=== PATIENT | female | born 1995 ===

== ENCOUNTER 2021-10-23 06:26 | Emergency (ER) | payer SELFPAY ==
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
[2021-10-23 07:57] LABS: Basophils % (Auto) 0.3 % (0.0-1.8); Eosinophils # (Auto) 0.1 K/mm3 (0.0-0.4); Eosinophils % (Auto) 0.7 % (0.0-4.3); Lymphocytes # (Auto) 1.3 K/mm3 (1.2-5.4); Lymphocytes % (Auto) 18.9 % (13.4-35.0); Mean Corpuscular HGB Conc 31 % (30-34); Mean Corpuscular Volume 85 fl (79-97); Monocytes # (Auto) 0.7 K/mm3 (0.0-0.8); Monocytes % (Auto) 10.3 % (0.0-7.3); Platelet Count 295 K/mm3 (140-440); Red Blood Count 4.96 M/mm3 (3.65-5.03); Red Cell Distribution Width 17.7 % (13.2-15.2)
[2021-10-23 08:04] LABS: Hemoglobin 12.9 gm/dl (10.1-14.3)
[2021-10-23 08:21] LABS: Alanine Aminotransferase 20 units/L (7-56); Albumin 3.9 g/dL (3.9-5); Blood Urea Nitrogen 11 mg/dL (7-17); Hemolysis Index 5
[2021-10-23 08:22] LABS: BUN/Creatinine Ratio 18
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
[2021-10-24 07:26] LABS: Amphetamine Screen,Urine PRESUMPTIVE NEGATIVE; Benzodiazepines Screen,Urine PRESUMPTIVE NEGATIVE; Cannabinoid Screen,Urine PRESUMPTIVE NEGATIVE; Cocaine Screen,Urine PRESUMPTIVE NEGATIVE; Methadone Screen,Urine PRESUMPTIVE NEGATIVE; Opiate Screen,Urine PRESUMPTIVE POSITIVE
[2021-10-24 07:32] LABS: Bilirubin,Urine NEG (Negative); Blood,Urine LG (Negative); Color,Urine Yellow (Yellow); Mucus,Urine FEW /HPF; Urobilinogen,Urine < 2.0 mg/dL (<2.0)
--- NOTE | 2021-10-24 11:45 | Progress Note ---
Subjective - Reason for Consult Consult date: 10/24/21 Reason for consult: suicidal attempt - Chief Complaint Chief complaint: The patient was seen this morning, she was tearful. She continues to endorse depression and is receptive to starting medications. She denies anyc urrent suicidal/homicidal ideation and denies hallucinations. REVIEW OF SYSTEMS Constitutional: Negative for weight loss ENT: Negative for stridor Respiratory: Negative for cough or hemoptysis All other systems reviewed and are negative MENTAL STATUS EXAMINATION General Appearance and Behavior: Age appropriate, good hygiene, not wearing appropriate clothes, good eye contact, cooperative polite with questioning. Cooperation: Participating/engaged Psychomotor Behavior: Psychomotor normal Mood: Depressed Affect and affective range:congruent with stated mood Thought Process: Goal directed Thought Content: reality oriented Speech: normal tone and pace Suicidal Ideation:Denies Homicidal Ideation: Denies HI Hallucinations: Denies Delusions: None elicited Impulse Control: Limited Insight and Judgment: Limited insight and fair judgment Memory: Normal Attention: Normal Orientation: Alert, oriented, Assessment and Plan depression Treatment 1013 Restart home meds Medical: Per primary Sitter: Defer to [facility] Disposition: Recommend acute inpatient treatment. Will follow. Medications and Allergies Mental Status Exam - Vital signs Last Vital Signs Temp 99.4 F 10/23/21 20:13 Pulse 107 H 10/23/21 20:13 Resp 18 10/23/21 20:13 BP 100/58 10/23/21 20:13 Pulse Ox 99 10/23/21 20:13
--- NOTE | 2021-10-24 11:48 | Event Note ---
Date: 10/24/21 S: No events reported overnight O: Vital Signs - 8 hr 10/24/21 12:10 Temperature 99.1 F Pulse Rate 83 Respiratory 16 Rate Blood Pressure 124/76 [Right] O2 Sat by Pulse 98 Oximetry A: depression PE: 1013/awaiting inpatient psych
[2021-10-24] MEDS ORDERED: SERTRALINE 25 MG TAB PO SCH (12:00)
--- NOTE | 2021-10-25 11:31 | Progress Note ---
Subjective - Reason for Consult Consult date: 10/25/21 Reason for consult: suicidal attempt - Chief Complaint Chief complaint: The patient was seen this morning, she reports doing well. She denies any current suicidal/homicidal ideation and denies hallucinations. REVIEW OF SYSTEMS Constitutional: Negative for weight loss ENT: Negative for stridor Respiratory: Negative for cough or hemoptysis All other systems reviewed and are negative MENTAL STATUS EXAMINATION General Appearance and Behavior: Age appropriate, good hygiene, not wearing appropriate clothes, good eye contact, cooperative polite with questioning. Cooperation: Participating/engaged Psychomotor Behavior: Psychomotor normal Mood: "OK" Affect and affective range:congruent with stated mood Thought Process: Goal directed Thought Content: reality oriented Speech: normal tone and pace Suicidal Ideation:Denies Homicidal Ideation: Denies HI Hallucinations: Denies Delusions: None elicited Impulse Control: Limited Insight and Judgment: Limited insight and good judgment Memory: Normal Attention: Normal Orientation: Alert, oriented, Assessment and Plan depression Treatment DC 1013 Restart home meds Continue Zoloft 25mg po daily Medical: Per primary Sitter: Defer to primary Disposition: Do not recommend acute inpatient treatment. Marine Geologist will provide patient with safety plan and psychiatric out patient resources. Will sign off. Medications and Allergies Mental Status Exam - Vital signs Last Vital Signs Temp 98.6 F 10/25/21 10:39 Pulse 89 10/25/21 10:39 Resp 18 10/25/21 10:39 BP 106/61 10/25/21 10:39 Pulse Ox 97 10/25/21 10:39
[2021-10-25 12:31] VITALS: BP 106/61
== END 2021-10-25 12:22 | disposition home or self-care (01) ==
LOC: ED 06:26
DX: U07.1 COVID-19 (principal); T40.2X2A Poisoning by other opioids, intentional self-harm, initial encounter; S60.812A Abrasion of left wrist, initial encounter; W26.8XXA Contact with other sharp object(s), not elsewhere classified, initial encounter; Z98.890 Other specified postprocedural states; Y93.89 Activity, other specified; Y92.89 Other specified places as the place of occurrence of the external cause; Y99.8 Other external cause status
CPT/HCPCS: 36415; 80053; 80307; 81001; 84702; 85025; 87086; 99284; U0003; 80320; G0480